=== PATIENT | male | born 1995 | race Caucasian/White ===

== ENCOUNTER 2019-08-30 16:57 | Emergency (ER) | payer OTHER ==
[~2019-08-30] VITALS: Ht 172.7 cm; Wt 75.0 kg
[2019-08-30] MEDS ORDERED: PERCOCET 325 MG1 TA2 PO (18:02)
[2019-08-30 18:15] VITALS: BP 124/74; PULSE 88; TEMP 98.7
== END 2019-08-30 18:16 | disposition home or self-care (01) ==
LOC: COL.ER 16:57
DX: S42.021A Displaced fracture of shaft of right clavicle, initial encounter for closed fracture (principal); V00.131A Fall from skateboard, initial encounter; Y93.51 Activity, roller skating (inline) and skateboarding; Y92.410 Unspecified street and highway as the place of occurrence of the external cause

== ENCOUNTER → 2019-12-06 | Outpatient (CLI) | payer OTHER ==
[~2019-12-06] MED LIST: PERCOCET 325 MG1 TA2 PO
== END ==
LOC: COL.RAD
DX: R10.11 Right upper quadrant pain (principal); R07.81 Pleurodynia